=== PATIENT | female | born 1985 | race Hispanic/Latino ===

== ENCOUNTER 2017-10-30 15:05 | Emergency (ER) | payer MEDICAID, OTHER ==
[2017-10-30 15:28] LABS: APPEARANCE,URINE Cloudy (CLEAR); BILIRUBIN,URINE Negative (NEGATIVE); COLOR,URINE DARK YELLOW (YELLOW); GLUCOSE, URINE (UA) Negative (NEGATIVE); KETONES,URINE Negative (NEGATIVE); LEUKOCYTE ESTERASE ,URINE Small (NEGATIVE); NITRATE,URINE Negative (NEGATIVE); OCCULT BLOOD,URINE Large (NEGATIVE); PROTEIN,URINE POS 1+ (NEGATIVE)
[2017-10-30 15:30] LABS: HCG,QUAL RESULT NEGATIVE (NEGATIVE)
[2017-10-30 15:52] LABS: BACTERIA,URINE Few /HPF (None Seen); RBC,URINE 51-100 /HPF (0-1)
[2017-10-30 15:53] LABS: SQUAMOUS EPITHELIAL CELL,UR 0-2 /HPF (0-2)
== END 2017-10-30 16:08 | disposition home or self-care (01) ==
LOC: EDH 15:05
DX: O23.31 Infections of other parts of urinary tract in pregnancy, first trimester (principal); Z3A.00 Weeks of gestation of pregnancy not specified
CPT/HCPCS: 81001; 81025

== ENCOUNTER 2018-07-15 04:32 | Emergency (ER) | payer OTHER ==
[2018-07-15] MEDS ORDERED: SODIUM CHLORIDE 0.9% 1000ML 1,000 ML IV ONE (05:23)
[2018-07-15] MEDS ORDERED: MAGNESIUM 2GM PREMIX 50ML 50 ML IV ONE ×2 (05:23→05:28)
[2018-07-15] MEDS ORDERED: PROCHLORPERAZINE EDISYLATE 10 MG/2 ML VIAL ONE (05:24)
== END 2018-07-15 06:54 | disposition home or self-care (01) ==
LOC: EDH 04:32
DX: R51 Headache (principal)
CPT/HCPCS: 96365; 96375; 99283; J0780; J3475 ×2; J7030

== ENCOUNTER 2018-08-18 11:26 | Emergency (ER) | payer OTHER ==
[2018-08-18] MEDS ORDERED: ONDANSETRON ODT 4 MG TAB ONE (12:04)
[2018-08-18 12:41] LABS: APPEARANCE,URINE CLEAR (CLEAR); BILIRUBIN,URINE MODERATE (NEGATIVE); COLOR,URINE YELLOW (YELLOW); GLUCOSE, URINE (UA) NEGATIVE (NEGATIVE); KETONES,URINE >=80 mg/dL (NEGATIVE); LEUKOCYTE ESTERASE ,URINE MODERATE (NEGATIVE); NITRATE,URINE NEGATIVE (NEGATIVE); OCCULT BLOOD,URINE NEGATIVE (NEGATIVE); PROTEIN,URINE 30 mg/dL (NEGATIVE)
[2018-08-18 12:43] LABS: HCG,QUAL RESULT POSITIVE (NEGATIVE)
[2018-08-18 12:44] LABS: BACTERIA,URINE Rare /HPF (None Seen); RBC,URINE 0-1 /HPF (0-1); SQUAMOUS EPITHELIAL CELL,UR Few /HPF (0-2)
== END 2018-08-18 14:12 | disposition home or self-care (01) ==
LOC: EDH 11:26
DX: O9A.211 Injury, poisoning and certain other consequences of external causes complicating pregnancy, first trimester (principal); S33.5XXA Sprain of ligaments of lumbar spine, initial encounter; O23.11 Infections of bladder in pregnancy, first trimester; Z3A.01 Less than 8 weeks gestation of pregnancy; X50.0XXA Overexertion from strenuous movement or load, initial encounter; Y93.89 Activity, other specified; Y92.89 Other specified places as the place of occurrence of the external cause; Y99.8 Other external cause status
CPT/HCPCS: 81001; 81025; 87804

== ENCOUNTER 2018-10-30 01:18 | Emergency (ER) | payer MEDICAID ==
[2018-10-30] MEDS ORDERED: AMOXICILLIN 500 MG CAPSULE PO ONE (01:28)
[2018-10-30] MEDS ORDERED: ACETAMINOPHEN-CODEINE 300/30MG TAB ONE (01:28)
[2018-10-30] MEDS ORDERED: BUPIVACAINE/PF 0.5% 30ML VIAL ONE (02:07)
[2018-10-30] MEDS ORDERED: LIDOCAINE HCL 1% 20 ML VIAL ONE (02:08)
== END 2018-10-30 02:47 | disposition home or self-care (01) ==
LOC: EDH 01:18
DX: O26.892 Other specified pregnancy related conditions, second trimester (principal); S02.5XXA Fracture of tooth (traumatic), initial encounter for closed fracture; Z79.899 Other long term (current) drug therapy; Z3A.16 16 weeks gestation of pregnancy; X58.XXXA Exposure to other specified factors, initial encounter; Y93.89 Activity, other specified; Y92.89 Other specified places as the place of occurrence of the external cause; Y99.8 Other external cause status
CPT/HCPCS: 64400; 99284; J3490; 64402

== ENCOUNTER 2019-06-29 05:31 | Emergency (ER) | payer MEDICAID, OTHER | END 2019-06-29 06:23 | disposition home or self-care (01) | LOC: EDH 05:31 | DX: K02.9 Dental caries, unspecified (principal) ==

== ENCOUNTER 2021-07-29 20:46 | Emergency (ER) | payer MEDICAID, OTHER ==
[~2021-07-29] VITALS: Ht 172.7 cm; Wt 72.6 kg
[2021-07-29 20:53] VITALS: BP 113/61
== END 2021-07-29 21:13 ==
LOC: EDH 20:46
DX: Z02.83 Encounter for blood-alcohol and blood-drug test (principal); Z53.21 Procedure and treatment not carried out due to patient leaving prior to being seen by health care provider